=== PATIENT | male | born 1940 | race American Indian/Alaskan Native ===

== ENCOUNTER 2018-12-27 11:22 | Outpatient (CLI) | payer MEDICARE, OTHER ==
[2018-12-27 12:13] LABS: Red Blood Count 5.33 M/mm3 (3.65-5.03)
[2018-12-27 12:14] LABS: Hematocrit 46.8 % (35.5-45.6); Hemoglobin 15.4 gm/dl (11.8-15.2); Mean Corpuscular HGB Conc 33 % (32-34); Mean Corpuscular Volume 88 fl (84-94); Platelet Count 321 K/mm3 (140-440); Red Cell Distribution Width 13.9 % (13.2-15.2)
[2018-12-27 12:42] LABS: Alanine Aminotransferase 29 units/L (7-56); Albumin 4.6 g/dL (3.9-5); BUN/Creatinine Ratio 12; Blood Urea Nitrogen 12 mg/dL (9-20); Calcium 9.7 mg/dL (8.4-10.2); Hemolysis Index 2
[2018-12-27 13:01] LABS: Erythrocyte Sedimentation Rate 5 mm/Hr (0-20)
[2018-12-29 09:48] LABS: Vitamin D, 25-OH, D2 <4 ng/mL
[2018-12-30 22:04] LABS: ANA Screen, IFA Negative (Negative)
== END 2018-12-27 11:23 | disposition home or self-care (01) ==
LOC: LAB 11:22
PROVIDERS: ATTEND Specialist
DX: G62.9 Polyneuropathy, unspecified (principal); G65.1 Sequelae of other inflammatory polyneuropathy; G95.9 Disease of spinal cord, unspecified; I10 Essential (primary) hypertension; E78.00 Pure hypercholesterolemia, unspecified; K21.9 Gastro-esophageal reflux disease without esophagitis; Z79.899 Other long term (current) drug therapy
CPT/HCPCS: 36415; 80053; 82085; 82306; 82550; 82607; 83036; 83519; 83921; 84443; 85027; 85652; 86038; 86256; 86334; 86592